=== PATIENT | male | born 1985 | race Two or more races ===

== ENCOUNTER 2017-10-06 10:36 | Emergency (ER) | payer SELFPAY ==
[~2017-10-06] VITALS: Ht 175.3 cm; Wt 61.6 kg
[2017-10-06 12:09] VITALS: BP 117/78
== END 2017-10-06 12:54 | disposition left against medical advice (07) ==
LOC: ED 12:48
DX: F10.120 Alcohol abuse with intoxication, uncomplicated (principal); Z71.41 Alcohol abuse counseling and surveillance of alcoholic; F17.200 Nicotine dependence, unspecified, uncomplicated
CPT/HCPCS: 99283

== ENCOUNTER 2018-07-17 18:05 | Emergency (ER) | payer SELFPAY ==
[~2018-07-17] VITALS: Ht 175.3 cm; Wt 77.0 kg
--- NOTE | 2018-07-17 18:09 | NUR ---
PT BIB [facility], PER [facility] PT WAS SEEN STUMBLING ACROSS THE STREET. WHEN [facility] ARRIVED PT WAS LAYING DOWN ON SIDEWALK. PIV ESTABLISHED PAINT [place], RECIEVED 1200 ML NS EN ROUTE. PT DROWSY BUT RESPONDING TO VERBAL RESPONSE. PT PLACED ON CONT PULSE OX, NIBP. NO COMPLAINTS OF N/V/D, CP, SYNCOPE, SOB. PT DENIES FALLING.
[2018-07-17] MEDS ORDERED: THIAMINE 100 MG/ML, 2ML IM ONE (18:30)
--- NOTE | 2018-07-17 18:54 | NUR ---
RECEIVED BS REPORT FROM [facility] DU[facility]TE WITH [facility] TO ASSUME PT. CARE AT THIS TIME. PT. RESTING ON GURNEY WITH EYES CLOSED. STRONG ETOH ODOR. PT. HAS CONTINUOUS PULSE OX AND B/P MONIOTRS IN PLACE. 2L O2 VIA NC IN USE. CALL LIGHT IN REACH. ALL SAFETY MEASURES OBSERVED.
[2018-07-17 18:55] VITALS: BP 104/60
[2018-07-17 19:01] LABS: ANION GAP 7 mmol/L (5-15); CALCIUM 7.5 mg/dL (8.5-10.1); CHLORIDE 115 mmol/L (98-107); CREATININE 0.71 mg/dL (0.7-1.3)
[2018-07-17 19:12] LABS: MEAN CORPUSCULAR HEMOGLOBIN 31.4 pg (27.5-34.5); MEAN CORPUSCULAR HGB CONC 32.3 g/dL (33.2-36.2); MEAN CORPUSCULAR VOLUME 97.3 fL (81-97); MEAN PLATELET VOLUME 7.9 fL (7.4-10.4); PLATELET COUNT 124 x10^3/uL (130-400); RED BLOOD COUNT 4.21 x10^6/uL (4.38-5.82); RED CELL DISTRIBUTION WIDTH 18.3 % (9.4-14.8)
[2018-07-17 19:13] LABS: BASOPHILS % (AUTO) 0 % (0-1); EOSINOPHILS # (AUTO) 0.06 x10^3/uL (0-0.4); EOSINOPHILS % (AUTO) 1 % (1-7); LYMPHOCYTES # (AUTO) 1.91 x10^3/uL (1-3.4); LYMPHOCYTES % (AUTO) 40 % (22-44); MONOCYTES # (AUTO) 0.42 x10^3/uL (0.2-0.8); MONOCYTES % (AUTO) 9 % (2-9); NEUTROPHILS # (AUTO) 2.37 x10^3/uL (1.8-6.8); NEUTROPHILS % (AUTO) 50 % (42-75)
[2018-07-17 19:14] LABS: MD SCAN
[2018-07-17] MEDS ORDERED: THIAMINE 100 MG/ML, 2ML ONE (19:18)
--- NOTE | 2018-07-17 19:48 | NUR ---
PT. NO LONGER IN ROOM. UNABLE TO LOCATE PT. IN DEPARTMENT.
== END 2018-07-17 19:59 | disposition left against medical advice (07) ==
LOC: ED 19:53
DX: F10.229 Alcohol dependence with intoxication, unspecified (principal); Z72.9 Problem related to lifestyle, unspecified
CPT/HCPCS: 36415; 80048; 83735; 85025; 96372; 99283; J3411

== ENCOUNTER 2018-08-07 20:45 | Emergency (ER) | payer SELFPAY ==
[~2018-08-07] VITALS: Ht 172.7 cm; Wt 70.0 kg
--- NOTE | 2018-08-07 21:28 | NUR ---
FOUND BY [facility], WHOM CALLED [address], PT POS ETOH AND UNABLE TO WALK PT HAS LAC WITH DRIED BLOOD TO LEFT EYEBROW
--- NOTE | 2018-08-07 21:47 | NUR ---
[facility]
[2018-08-07 23:11] VITALS: BP 103/68
--- NOTE | 2018-08-07 23:11 | NUR ---
PT SLEEPING VSS OPENS EYES TO VERBAL STIMULI BUT DOES NOT RESPOND TO QUESTIONS
--- NOTE | 2018-08-08 00:49 | NUR ---
Patient/Caregiver given discharge instructions and they have confirmed that they understand the instructions. Patient ambulatory with steady gait.
== END 2018-08-08 00:51 | disposition home or self-care (01) ==
LOC: ED 08-08 00:45
DX: S02.2XXA Fracture of nasal bones, initial encounter for closed fracture (principal); S01.81XA Laceration without foreign body of other part of head, initial encounter; J32.0 Chronic maxillary sinusitis; M27.2 Inflammatory conditions of jaws; F17.200 Nicotine dependence, unspecified, uncomplicated; W18.09XA Striking against other object with subsequent fall, initial encounter; Y93.89 Activity, other specified; Y92.89 Other specified places as the place of occurrence of the external cause; Y99.8 Other external cause status
CPT/HCPCS: 70450; 70486; 72125; 99284